=== PATIENT | male | born 1990 | race Caucasian/White ===

== ENCOUNTER 2024-11-12 10:06 | Emergency (ER) | payer MEDICAID ==
[~2024-11-12] VITALS: Ht 170.2 cm; Wt 70.0 kg
[2024-11-12 10:08] VITALS: BP 102/53; PULSE 65; RESP 16; TEMP 36.8; O2SAT 100; O2SAT 98
[2024-11-12 12:00] LABS: CLARITY URINE CLEAR (CLEAR); COLOR URINE YELLOW (YELLOW); GLUCOSE URINE NEGATIVE (NEGATIVE); KETONES URINE NEGATIVE (NEGATIVE); LEUKOCYTE ESTERASE URINE 3+ (NEGATIVE); NITRITE URINE NEGATIVE (NEGATIVE); OCCULT BLOOD URINE NEGATIVE (NEGATIVE); PH URINE 5.5 (4.5-8.0); PROTEIN URINE NEGATIVE (NEGATIVE); SPECIFIC GRAVITY URINE 1.027 (1.005-1.030); UROBILINOGEN URINE 0.2 E.U./dL (0.2-1.0)
[2024-11-12 12:58] LABS: WBC URINE 50-100 /hpf (0-2)
[2024-11-12 12:59] LABS: BACTERIA URINE FEW; RBC URINE NONE SEEN /hpf (0-2); SQUAMOUS EPITHELIAL CELL URINE NONE SEEN /lpf (RARE/1+); YEAST URINE NONE SEEN
[2024-11-12] MEDS ORDERED: CEFTRIAXONE 1GM/50ML 50 ML IV ONE (13:45)
[2024-11-12] MEDS ORDERED: DOXY100C5 MT (13:52)
[2024-11-12] MEDS: DOXYCYCLINE HYCLATE 100MG CAPSULE PO ONE (13:55)
[2024-11-12] MEDS: CEFTRIAXONE SODIUM 500MG VIAL IM ONE (13:56)
[2024-11-15 19:10] LABS: CHLAMYDIA TRACHOMATIS NAA Negative (Negative); NEISSERIA GONORRHOEAE NAA Positive (Negative)
== END 2024-11-12 13:59 | disposition home or self-care (01) ==
LOC: ER 10:06
DX: Z20.2 Contact with and (suspected) exposure to infections with a predominantly sexual mode of transmission (principal); N39.0 Urinary tract infection, site not specified
CPT/HCPCS: 87491; 87591; 81003; 87086; 96372; 99283; J0696; Z7610